=== PATIENT | female | born 1935 | race Two or more races ===

== ENCOUNTER 2024-05-09 07:01 | Inpatient (IN) | payer OTHER ==
[~2024-05-09] VITALS: Ht 147.3 cm; Wt 111.6 kg
[2024-05-09] MEDS ORDERED: NEURONTIN300 MG (07:20)
[2024-05-09] MEDS ORDERED: GLIPIZIDE XL2.5 MG PO (07:20)
[2024-05-09] MEDS ORDERED: LOTREL 10-20 M1 EACH (07:20)
[2024-05-09] MEDS ORDERED: ARICEPT10 MG PO (07:20)
[2024-05-09] MEDS ORDERED: FOLIC ACID0.8 M1 (07:21)
[2024-05-09] MEDS ORDERED: NAMENDA XR7 MG (07:21)
[2024-05-09] MEDS ORDERED: SIMVASTATIN40 MG (07:21)
[2024-05-09] MEDS ORDERED: DETROL LA4 MG PO (07:22)
[2024-05-09] MEDS ORDERED: CARAFATE1 GM (07:22)
[2024-05-09] MEDS ORDERED: KRISTALOSE10 GM PO (07:22)
--- NOTE | 2024-05-09 07:22 | NUR ---
SE RECIBE PTE ALERTA Y ORIENTADA EN PERSONA EN AMBULANCIA EN COMPANIA DE FAMILIAR Y PARAMEDICOS. HIJA REFIERE QUE PTE SE ALUREN EL Y LE DIAGNOSTICARON FRACTURA EN LA CADERA DERECHA EN EL [facility]. PTE REFIERE QUE EN RECIEN LABORATOTORIO HEMOGLOBINA EN 7.6. SE OBSEVA NI DE HOGAR. SE MIDEN S/V Y SE UBICA.
[2024-05-09] MEDS ORDERED: 0.9 % SODIUM CHLORIDE 1,000 ML IV STA (07:29)
[2024-05-09 08:43] LABS: ABG PH 7.449 (7.35-7.45); ABG PO2 70.2 mmHg (80-100); ABG pCO2 38.5 mmHg (35-45); BASE EXCESS 2.1 mmol/l; BICARBONATE 26.1 mmol/l (23-25); SaO2 94.8 %; Tco2 27.3 mmol/l; o2 21 %; puncture site RADIAL LEFT
[2024-05-09 08:44] LABS: allen test SATISFACTORY
--- NOTE | 2024-05-09 08:44 | NUR ---
SE LE ORIENTA A PACIENTE SOBRE LA ORDEN MEDICA, REFIERE ENTENDER LAS MISMAS. SE CANALIZA Y SE LE COLOCA EL IVF'S, SE LE TG LAS MUETRAS, SE LE RAEALIZA EKG, PLACA, CT, DXT Y EKG ALFA LA ORDEN MEDICA.
[2024-05-09 08:48] LABS: MEAN CELL VOLUME 89.4 fL (80.00-100.00); MEAN CORPUSCULAR HGB CONC 31.9 g/dl (32.0-36.0); RED BLOOD COUNT 2.91 M/uL (4.00-6.00); RED CELL DISTRIBUTION WIDTH 18.3 % (11.5-14.5)
[2024-05-09 08:56] LABS: INR 1.04; PARTIAL THROMBOPLASTIN TIME 25.4 SECONDS (22.0-34.0); PROTHROMBIN TIME 11.3 SECONDS (9.0-11.5)
[2024-05-09 09:01] LABS: URINE APPEARANCE Turbid; URINE BILIRRUBIN Negative (NEGATIVE); URINE BLOOD Large; URINE COLOR Orange; URINE GLUCOSE Negative (NEGATIVE); URINE KETONE Negative (NEGATIVE); URINE LEUKOCYTE Moderate; URINE NITRATE Negative
[2024-05-09 09:03] LABS: URINE CAST 1.87 uL (0.0-1.40); URINE EPITHELIAL CELLS 35.4 uL (0.0-38.8); URINE WBC 1003.9 uL (0.0-23.2)
[2024-05-09 09:07] LABS: ALBUMIN 2.8 gm/dL (3.4-5.0); BILIRUBIN TOTAL 0.28 mg/dL (0.3-1.2); CALCIUM 8.9 mg/dL (8.5-10.1); CREATININE SERUM 0.79 mg/dL (0.55-1.02); GFR 68.68; GLOBULINA 4.1 G/DL (2.4-3.5); POTASSIUM 4.16 mEq/L (3.5-5.1); TOTAL PROTEIN 6.9 gm/dL (6.4-8.2)
[2024-05-09] MEDS ORDERED: ORPHENADRINE CITRATE 30 MG/ML AMPUL IV ONE (09:45)
[2024-05-09 09:50] LABS: HEMOGLOBIN 8.3 g/dL (12.0-15.00); MEAN CORPUSCULAR HEMOGLOBIN 28.5 pg (27.00-32.0); PLATELET COUNT 113 K/uL (150-450)
[2024-05-09 09:52] LABS: URINE BACTERIA > 9821.5 uL (0.0-1933); URINE PROTEIN 300 (NEGATIVE); URINE RBC > 10558.9 uL (0.0-20.8)
[2024-05-09] MEDS ORDERED: PIPERACILLIN/TAZOBACTAM SODIUM 3.375 GM VIAL IV SCH (12:00)
[2024-05-09] MEDS ORDERED: KETOROLAC TROMETHAMINE 30 MG VIAL IV ONE (17:45)
[2024-05-09 17:53] LABS: ob POSITIVE (NEGATIVE)
[2024-05-09] MEDS ORDERED: DONEPEZIL HCL 10 MG TABLET PO SCH (20:28)
[2024-05-09] MEDS ORDERED: MEMANTINE HCL 10 MG TABLET PO SCH (20:29)
[2024-05-09] MEDS ORDERED: MORPHINE SULFATE 4 MG/ML CARTRIDGE IV ONE (20:30)
[2024-05-09] MEDS ORDERED: ACETAMINOPHEN 500 MG GEL..CAP PO PRN (20:30)
[2024-05-09] MEDS ORDERED: MORPHINE SULFATE 4 MG/ML CARTRIDGE IV PRN (20:30)
[2024-05-09] MEDS ORDERED: FUROsemide 20 MG/2 ML VIAL IV SCH (20:45)
[2024-05-10 05:00] VITALS: BP 119/53; O2SAT 100
[2024-05-10 08:00] VITALS: BP 94/55; O2SAT 97
[2024-05-10 08:54] LABS: COL EPI 58 SECONDS (82-175)
[2024-05-10] MEDS ORDERED: PANTOPRAZOLE SODIUM 40 MG/VIAL VIAL IV SCH (09:00)
[2024-05-10] MEDS ORDERED: AMLODIPINE BESYLATE 5 MG TABLET PO SCH (09:00)
[2024-05-10] MEDS ORDERED: 0.9 % SODIUM CHLORIDE 1,000 ML IV SCH (11:00)
[2024-05-10 16:00] VITALS: BP 92/45; O2SAT 97
[2024-05-10] MEDS ORDERED: SIMVASTATIN 40 MG TABLET PO SCH (17:00)
[2024-05-10] MEDS ORDERED: GABAPENTIN 400 MG CAPSULE PO SCH (17:00)
[2024-05-11 01:04] VITALS: BP 114/53; O2SAT 100
[2024-05-11 08:00] VITALS: BP 110/60; BP 111/70; O2SAT 95; O2SAT 97
[2024-05-11 08:49] LABS: PH,URINE 5.5 (5.0-8.0); URINE APPEARANCE Cloudy; URINE BILIRRUBIN Negative (NEGATIVE); URINE BLOOD Trace; URINE COLOR Yellow; URINE GLUCOSE Negative (NEGATIVE); URINE KETONE Negative (NEGATIVE); URINE LEUKOCYTE Trace; URINE NITRATE Negative; URINE PROTEIN 30 (NEGATIVE); URINE UROBILINOGEN 0.2 E.U./dl
[2024-05-11 08:51] LABS: URINE EPITHELIAL CELLS 18.3 uL (0.0-38.8); URINE RBC 86.9 uL (0.0-20.8); URINE WBC 95.2 uL (0.0-23.2)
[2024-05-11 09:02] LABS: URINE CRYSTALS MANY /HPF; URINE EPITHELIAL CELLS 0-4 /HPF
[2024-05-11] MEDS ORDERED: LACTULOSE 20 G/30 ML BLIST.PACK PO SCH (10:55)
[2024-05-11] MEDS ORDERED: FERROUS SULFATE 325 MG TABLET.EC PO SCH (10:56)
[2024-05-11] MEDS ORDERED: POLYETHYLENE GLYCOL 3350 17 GM BLIST.PACK PO SCH (10:56)
[2024-05-11 13:18] LABS: HEMATOCRIT 31.1 % (36.0-45.00); HEMOGLOBIN 9.7 g/dL (12.0-15.00); MEAN CELL VOLUME 88.8 fL (80.00-100.00); MEAN CORPUSCULAR HEMOGLOBIN 27.8 pg (27.00-32.0); MEAN CORPUSCULAR HGB CONC 31.3 g/dl (32.0-36.0); RED BLOOD COUNT 3.51 M/uL (4.00-6.00); RED CELL DISTRIBUTION WIDTH 18.9 % (11.5-14.5)
[2024-05-11] MEDS ORDERED: VANCOMYCIN HCL 1,000 MG VIAL IV NR (13:30)
[2024-05-11 13:51] LABS: PLATELET COUNT 91 K/uL (150-450)
[2024-05-11] MEDS ORDERED: AMPICILLIN SODIUM/SULBACTAM NA 3,000 MG in 0.9 % SODIUM CHLORIDE 100 ML IV SCH (17:00)
[2024-05-11 17:08] VITALS: BP 130/58; O2SAT 95
[2024-05-12] VITALS: BP 113/57; O2SAT 99
[2024-05-12 08:00] VITALS: BP 160/72; O2SAT 95
[2024-05-12] MEDS ORDERED: FUROsemide 20 MG/2 ML VIAL IV SCH (12:15)
[2024-05-12 17:06] VITALS: BP 154/66; O2SAT 97
[2024-05-13 01:00] VITALS: BP 140/63; O2SAT 100
[2024-05-13 08:00] VITALS: BP 152/78; O2SAT 100
[2024-05-13 14:32] LABS: PH,URINE 6.5 (5.0-8.0); URINE APPEARANCE Clear; URINE BILIRRUBIN Negative (NEGATIVE); URINE BLOOD Negative; URINE COLOR Yellow; URINE EPITHELIAL CELLS 19.1 uL (0.0-38.8); URINE GLUCOSE Negative (NEGATIVE); URINE KETONE Negative (NEGATIVE); URINE LEUKOCYTE Negative; URINE NITRATE Negative; URINE RBC 6.1 uL (0.0-20.8); URINE WBC 23.5 uL (0.0-23.2)
[2024-05-13 14:33] LABS: URINE CAST 0.29 uL (0.0-1.40); URINE PROTEIN 100 (NEGATIVE)
[2024-05-13 20:10] VITALS: BP 117/63; O2SAT 95
[2024-05-14 00:41] VITALS: BP 106/49; O2SAT 98
[2024-05-14 08:00] VITALS: BP 127/66; O2SAT 95
[2024-05-14] MEDS ORDERED: AMLODIPINE BESYLATE 10 MG TABLET PO SCH (09:00)
[2024-05-14 15:19] LABS: HEMATOCRIT 39.8 % (36.0-45.00); HEMOGLOBIN 13.1 g/dL (12.0-15.00); MEAN CELL VOLUME 82.9 fL (80.00-100.00); MEAN CORPUSCULAR HEMOGLOBIN 27.3 pg (27.00-32.0); MEAN CORPUSCULAR HGB CONC 32.9 g/dl (32.0-36.0); RED CELL DISTRIBUTION WIDTH 18.8 % (11.5-14.5)
[2024-05-14 15:39] LABS: CALCIUM 8.3 mg/dL (8.5-10.1); CREATININE SERUM 0.78 mg/dL (0.55-1.02); GFR 69.7; POTASSIUM 3.4 mEq/L (3.5-5.1)
[2024-05-14 16:00] VITALS: BP 139/61; O2SAT 95
[2024-05-14 16:07] LABS: PLATELET COUNT 67 K/uL (150-450)
[2024-05-14 16:15] LABS: MANUAL PLATELET COUNT 142
[2024-05-15 00:30] VITALS: BP 118/69; O2SAT 97
[2024-05-15 07:28] LABS: HEMATOCRIT 37.9 % (36.0-45.00); HEMOGLOBIN 12.7 g/dL (12.0-15.00); MEAN CORPUSCULAR HEMOGLOBIN 27.5 pg (27.00-32.0); MEAN CORPUSCULAR HGB CONC 33.5 g/dl (32.0-36.0); RED BLOOD COUNT 4.62 M/uL (4.00-6.00); RED CELL DISTRIBUTION WIDTH 18.9 % (11.5-14.5)
[2024-05-15 08:00] VITALS: BP 138/64; O2SAT 96
[2024-05-15] MEDS ORDERED: CEFTRIAXONE SODIUM 2,000 MG VIAL IV SCH (08:00)
[2024-05-15 08:05] LABS: CALCIUM 8.2 mg/dL (8.5-10.1); CREATININE SERUM 0.6 mg/dL (0.55-1.02); GFR 94.34; POTASSIUM 3.03 mEq/L (3.5-5.1)
[2024-05-15 08:39] LABS: PLATELET COUNT 66 K/uL (150-450)
[2024-05-15] MEDS ORDERED: VANCOMYCIN HCL 1,000 MG VIAL IR ONE (09:45)
[2024-05-15] MEDS ORDERED: CEFTRIAXONE SODIUM 2,000 MG VIAL IV ONE (09:45)
[2024-05-15] MEDS ORDERED: TRANEXAMIC ACID 100MG/1ML (1000MG) AMPUL IV ONE ×2 (09:45)
[2024-05-15] MEDS ORDERED: SUGAMMADEX SODIUM 200 MG/2 ML VIAL IV ONE (10:30)
[2024-05-15] MEDS ORDERED: ONDANSETRON HCL 2 MG/ML VIAL IV PRN (10:45)
[2024-05-15] MEDS ORDERED: ONDANSETRON 4 MG TAB.RAPDIS PO PRN (10:45)
[2024-05-15] MEDS ORDERED: SODIUM CHLORIDE 0.45 % 1,000 ML IV SCH (10:45)
[2024-05-15] MEDS ORDERED: POTASSIUM CHLORIDE 10 MEQ CAPSULE PO SCH (13:00)
[2024-05-15] MEDS ORDERED: PROMETHAZINE HCL 25 MG/ML AMPUL IM PRN (14:45)
[2024-05-15] MEDS ORDERED: MEPERIDINE HCL/PF 25 MG/ML VIAL IM PRN (14:45)
[2024-05-15 16:00] VITALS: BP 131/61
[2024-05-16 00:10] VITALS: BP 111/56; O2SAT 91
[2024-05-16 06:51] LABS: HEMATOCRIT 36.3 % (36.0-45.00); MEAN CELL VOLUME 83.1 fL (80.00-100.00); MEAN CORPUSCULAR HEMOGLOBIN 27.4 pg (27.00-32.0); RED BLOOD COUNT 4.36 M/uL (4.00-6.00); RED CELL DISTRIBUTION WIDTH 18.8 % (11.5-14.5)
[2024-05-16 07:28] LABS: PLATELET COUNT 61 K/uL (150-450)
[2024-05-16 08:00] VITALS: BP 140/60; O2SAT 94
[2024-05-16] MEDS ORDERED: RIVAROXABAN 10 MG TAB PO SCH (09:00)
[2024-05-16] MEDS ORDERED: PANTOPRAZOLE SODIUM 40 MG TABLET.DR PO SCH (09:00)
[2024-05-16 18:16] VITALS: BP 102/63; O2SAT 94
[2024-05-17] VITALS: BP 115/60; O2SAT 98
[2024-05-17 07:55] LABS: HEMATOCRIT 37.4 % (36.0-45.00); HEMOGLOBIN 11.7 g/dL (12.0-15.00); MEAN CELL VOLUME 85.6 fL (80.00-100.00); MEAN CORPUSCULAR HEMOGLOBIN 26.7 pg (27.00-32.0); MEAN CORPUSCULAR HGB CONC 31.2 g/dl (32.0-36.0); RED BLOOD COUNT 4.37 M/uL (4.00-6.00); RED CELL DISTRIBUTION WIDTH 19.3 % (11.5-14.5)
[2024-05-17 08:38] LABS: ALBUMIN 2.2 gm/dL (3.4-5.0); BILIRUBIN TOTAL 0.78 mg/dL (0.3-1.2); CALCIUM 8.4 mg/dL (8.5-10.1); CREATININE SERUM 0.85 mg/dL (0.55-1.02); GFR 63.12; GLOBULINA 3.5 G/DL (2.4-3.5); MAGNESIUM 1.9 mg/dL (1.8-2.4); PHOSPHOROUS 2.1 mg/dL (2.5-4.9); POTASSIUM 3.74 mEq/L (3.5-5.1); TOTAL PROTEIN 5.7 gm/dL (6.4-8.2)
[2024-05-17 08:40] LABS: PLATELET COUNT 47 K/uL (150-450)
[2024-05-17] MEDS ORDERED: SENNA/DOCUSATE SODIUM 1 TAB TABLET PO SCH (09:00)
[2024-05-17] MEDS ORDERED: CEFTRIAXONE SODIUM 2,000 MG in 0.9 % SODIUM CHLORIDE 100 ML IV SCH (09:00)
[2024-05-17 09:50] VITALS: BP 152/68; O2SAT 100
[2024-05-17] MEDS ORDERED: FLUCONAZOLE IN NACL,ISO-OSM 200 MG/100 ML PIGGYBAG IV NR (14:00)
[2024-05-17 16:00] VITALS: BP 106/58; O2SAT 95
[2024-05-17] MEDS ORDERED: IRON FUM,PS/FOLIC ACID/VITC/B3 1 CAP CAPSULE PO SCH (17:00)
[2024-05-17] MEDS ORDERED: VITAMIN B COMPLEX 1 EACH PO SCH (17:00)
[2024-05-17] MEDS ORDERED: Cyanocobalamin/Mecobalamin 1 TAB.SL SL SCH (17:00)
[2024-05-17] MEDS ORDERED: SILVER SULFADIAZINE 50 GM,NYSTATIN 30 GM,ZINC OXIDE 30 GM TOP SCH (17:00)
[2024-05-17] MEDS ORDERED: SOD FERRIC GLUC COMPLX/SUCROSE 62.5 MG/5 ML AMPUL IV SCH (17:00)
[2024-05-18 00:12] VITALS: BP 127/58; O2SAT 94
[2024-05-18] MEDS ORDERED: MEPERIDINE HCL/PF 25 MG/ML VIAL IM PRN (03:30)
[2024-05-18] MEDS ORDERED: PROMETHAZINE HCL 25 MG/ML AMPUL IM PRN (03:30)
[2024-05-18 07:50] LABS: HEMATOCRIT 33.4 % (36.0-45.00); HEMOGLOBIN 10.8 g/dL (12.0-15.00); MEAN CELL VOLUME 84.4 fL (80.00-100.00); MEAN CORPUSCULAR HEMOGLOBIN 27.3 pg (27.00-32.0); MEAN CORPUSCULAR HGB CONC 32.4 g/dl (32.0-36.0); RED BLOOD COUNT 3.95 M/uL (4.00-6.00); RED CELL DISTRIBUTION WIDTH 18.4 % (11.5-14.5)
[2024-05-18 08:00] VITALS: BP 123/48; O2SAT 93
[2024-05-18] MEDS ORDERED: DEXTROSE 50 % IN WATER 0.5 G/ML DISP.SYRIN IV PRN (08:00)
[2024-05-18 08:41] LABS: PLATELET COUNT 42 K/uL (150-450)
[2024-05-18 08:56] LABS: CALCIUM 8.3 mg/dL (8.5-10.1); CREATININE SERUM 0.61 mg/dL (0.55-1.02); GFR 92.56; POTASSIUM 3.42 mEq/L (3.5-5.1)
[2024-05-18 16:00] VITALS: BP 120/60; O2SAT 97
[2024-05-18] MEDS ORDERED: FLUCONAZOLE IN NACL,ISO-OSM 2 MG/ML ML IV SCH (17:00)
[2024-05-18] MEDS ORDERED: CLOTRIMAZOLE 10 MG TROCHE MM SCH (17:00)
[2024-05-18] MEDS ORDERED: INSULIN GLARGINE,HUM.REC.ANLOG 1,000 UNITS/10 ML UNITS SUBCUTANEO SCH (21:00)
[2024-05-19 01:26] VITALS: BP 137/60; O2SAT 96
[2024-05-19 06:41] LABS: HEMATOCRIT 35.2 % (36.0-45.00); HEMOGLOBIN 11.6 g/dL (12.0-15.00); MEAN CELL VOLUME 83.9 fL (80.00-100.00); MEAN CORPUSCULAR HEMOGLOBIN 27.7 pg (27.00-32.0); MEAN CORPUSCULAR HGB CONC 33.1 g/dl (32.0-36.0); RED CELL DISTRIBUTION WIDTH 19.3 % (11.5-14.5)
[2024-05-19 07:35] LABS: PLATELET COUNT 58 K/uL (150-450)
[2024-05-19 08:00] VITALS: BP 143/72; O2SAT 96
[2024-05-19 14:55] LABS: ALBUMIN 1.9 gm/dL (3.4-5.0); BILIRUBIN TOTAL 0.44 mg/dL (0.3-1.2); CALCIUM 8.1 mg/dL (8.5-10.1); CREATININE SERUM 0.64 mg/dL (0.55-1.02); GFR 87.57; GLOBULINA 4.2 G/DL (2.4-3.5); MAGNESIUM 1.9 mg/dL (1.8-2.4); PHOSPHOROUS 2.1 mg/dL (2.5-4.9); POTASSIUM 3.14 mEq/L (3.5-5.1); TOTAL PROTEIN 6.1 gm/dL (6.4-8.2)
[2024-05-19 14:58] LABS: C-REACTIVE PROTEIN 11.6 MG/DL (0.00-0.29)
[2024-05-19 16:00] VITALS: BP 118/56; O2SAT 96
[2024-05-20 02:02] VITALS: BP 121/60; O2SAT 96
[2024-05-20 08:00] VITALS: BP 134/62; O2SAT 97
[2024-05-20 08:53] LABS: CALCIUM 7.8 mg/dL (8.5-10.1); CREATININE SERUM 0.51 mg/dL (0.55-1.02); GFR 113.81; POTASSIUM 3.45 mEq/L (3.5-5.1)
[2024-05-20 15:53] VITALS: BP 125/60; O2SAT 92
[2024-05-20] MEDS ORDERED: PROMETHAZINE HCL 25 MG/ML AMPUL IM PRN (23:15)
[2024-05-20] MEDS ORDERED: MEPERIDINE HCL/PF 25 MG/ML VIAL IM PRN (23:15)
[2024-05-21 01:24] VITALS: BP 123/71; O2SAT 95
[2024-05-21 08:00] VITALS: BP 94/50; O2SAT 95
[2024-05-21] MEDS ORDERED: LABETALOL HCL 100 MG TABLET PO PRN (11:45)
[2024-05-21 16:30] VITALS: BP 115/67; O2SAT 95
[2024-05-22 02:04] VITALS: BP 138/83; O2SAT 96
[2024-05-22 08:00] VITALS: BP 133/71; O2SAT 94
[2024-05-22 08:56] LABS: RED BLOOD COUNT 4.05 M/uL (4.00-6.00)
[2024-05-22 11:34] LABS: CREATININE SERUM 0.49 mg/dL (0.55-1.02); GFR 119.18; POTASSIUM 4.08 mEq/L (3.5-5.1)
[2024-05-22 16:00] VITALS: BP 140/62; O2SAT 97
== END 2024-05-22 22:09 | DRG 521 ==
LOC: EDBD 07:01 → ER 07:01 → SURH 22:13
PROVIDERS: General Practice; Internal Medicine; Internal Medicine Infectious Disease; Orthopaedic Surgery; ADMIT Student in an Organized Health Care Education/Training Program; ATTEND Student in an Organized Health Care Education/Training Program
PROC: BW28ZZZ Computerized Tomography (CT Scan) of Head (ICD-10-PCS; 2024-05-09)
PROC: BR20ZZZ Computerized Tomography (CT Scan) of Cervical Spine (ICD-10-PCS; 2024-05-09)
PROC: BR2CZZZ Computerized Tomography (CT Scan) of Pelvis (ICD-10-PCS; 2024-05-09)
PROC: 30233N1 Transfusion of Nonautologous Red Blood Cells into Peripheral Vein, Percutaneous Approach (ICD-10-PCS; 2024-05-10)
PROC: B24BZZZ Ultrasonography of Heart with Aorta (ICD-10-PCS; 2024-05-10)
PROC: 02HV33Z Insertion of Infusion Device into Superior Vena Cava, Percutaneous Approach (ICD-10-PCS; 2024-05-12)
PROC: 0MBL0ZZ Excision of Right Hip Bursa and Ligament, Open Approach (ICD-10-PCS; 2024-05-15)
PROC: 0SRR0JZ Replacement of Right Hip Joint, Femoral Surface with Synthetic Substitute, Open Approach (ICD-10-PCS; principal; 2024-05-15 12:15)
DX: S72.031A Displaced midcervical fracture of right femur, initial encounter for closed fracture (principal); K76.7 Hepatorenal syndrome; N39.0 Urinary tract infection, site not specified; D62 Acute posthemorrhagic anemia; I50.30 Unspecified diastolic (congestive) heart failure; C64.9 Malignant neoplasm of unspecified kidney, except renal pelvis; E78.5 Hyperlipidemia, unspecified; W13.3XXA Fall through floor, initial encounter; Y93.9 Activity, unspecified; Y92.009 Unspecified place in unspecified non-institutional (private) residence as the place of occurrence of the external cause; I35.0 Nonrheumatic aortic (valve) stenosis; I25.10 Atherosclerotic heart disease of native coronary artery without angina pectoris; I11.0 Hypertensive heart disease with heart failure; G30.9 Alzheimer's disease, unspecified; F02.80 Dementia in other diseases classified elsewhere, unspecified severity, without behavioral disturbance, psychotic disturbance, mood disturbance, and anxiety; D69.6 Thrombocytopenia, unspecified; K31.819 Angiodysplasia of stomach and duodenum without bleeding

== ENCOUNTER 2024-08-24 12:40 | Outpatient (CLI) | payer OTHER ==
[~2024-08-24 12:40] MED LIST: ARICEPT10 MG PO; CARAFATE1 GM; DETROL LA4 MG PO; FOLIC ACID0.8 M1; GLIPIZIDE XL2.5 MG PO; KRISTALOSE10 GM PO; LOTREL 10-20 M1 EACH; NAMENDA XR7 MG; NEURONTIN300 MG; SIMVASTATIN40 MG
== END 2024-08-24 12:46 | disposition home or self-care (01) ==
LOC: RAD 12:40
PROVIDERS: ATTEND Orthopaedic Surgery
DX: Z96.641 Presence of right artificial hip joint (principal)

== ENCOUNTER 2024-10-24 15:30 | Inpatient (IN) | payer OTHER ==
[~2024-10-24] VITALS: Ht 157.5 cm; Wt 45.4 kg
[2024-10-24] MEDS ORDERED: 0.9 % SODIUM CHLORIDE 1,000 ML IV SCH ×2 (16:45→20:15)
[2024-10-24 17:53] LABS: CALCIUM 8.7 mg/dL (8.5-10.1); CREATININE SERUM 0.61 mg/dL (0.55-1.02); GFR 92.35; POTASSIUM 4.38 mEq/L (3.5-5.1)
[2024-10-24 18:23] LABS: RED BLOOD COUNT 2.08 M/uL (3.93-5.22)
[2024-10-24 18:25] LABS: MEAN CORPUSCULAR HEMOGLOBIN 25.5 pg (25.6-32.2); RED CELL DISTRIBUTION WIDTH 16.8 % (11.6-14.4)
[2024-10-24 18:26] LABS: BASO % 0.3 % (0.1-1.2); EOS # 0.03 (0.04-0.54); EOS % 0.5 % (0.7-7.0); LYMPH # 1.86 (1.18-3.74); MONO # 1.67 (0.24-0.82); NEUT # 2.62 (1.56-6.13); NEUT % 42.1 % (34.0-71.1); PLATELET COUNT 138 K/uL (163-369)
[2024-10-24 18:27] LABS: MONO % 26.9 % (4.7-12.5)
[2024-10-24 18:40] LABS: HEMATOCRIT 17.5 % (34.1-44.9); HEMOGLOBIN 5.3 g/dL (11.2-15.7)
[2024-10-24] MEDS ORDERED: FUROsemide 20 MG/2 ML VIAL IV SCH (20:15)
[2024-10-24] MEDS ORDERED: PANTOPRAZOLE SODIUM 40 MG/VIAL VIAL IV SCH (20:19)
[2024-10-24] MEDS ORDERED: DONEPEZIL HCL 10 MG TABLET PO SCH (20:19)
[2024-10-24] MEDS ORDERED: ACETAMINOPHEN 500 MG GEL..CAP PO PRN (20:30)
[2024-10-24] MEDS ORDERED: OCTREOTIDE ACETATE 0.05MG/ML (50MCG/ML) AMPUL IV ONE (20:30)
[2024-10-24 23:00] VITALS: BP 137/40; O2SAT 98
[2024-10-24 23:08] VITALS: BP 152/72
[2024-10-24 23:49] LABS: INR 1.03; PARTIAL THROMBOPLASTIN TIME 24.5 SECONDS (22.0-34.0); PROTHROMBIN TIME 11.2 SECONDS (9.0-11.5)
[2024-10-25] VITALS (13 sets, daily range): BP systolic 114–169; BP diastolic 40–58; O2SAT 93–100
[2024-10-25 00:56] LABS: PH,URINE 7.5 (5.0-8.0); URINE APPEARANCE Turbid; URINE BILIRRUBIN Negative (NEGATIVE); URINE BLOOD Negative; URINE COLOR Yellow; URINE GLUCOSE Negative (NEGATIVE); URINE KETONE Negative (NEGATIVE); URINE LEUKOCYTE Small; URINE NITRATE Positive; URINE PROTEIN 30 (NEGATIVE); URINE UROBILINOGEN 0.2 E.U./dl
[2024-10-25 01:01] LABS: URINE CAST 2.79 uL (0.0-1.40); URINE RBC 6.9 uL (0.0-20.8)
[2024-10-25 01:35] LABS: URINE BACTERIA > 9821.5 uL (0.0-1933); URINE EPITHELIAL CELLS > 201.7 uL (0.0-38.8)
[2024-10-25 01:36] LABS: URINE CRYSTALS MANY /HPF
[2024-10-25] MEDS ORDERED: IRON FUM,PS/FOLIC/BCOMP,C NO.9 1 CAP CAPSULE PO SCH (09:00)
[2024-10-25] MEDS ORDERED: MEMANTINE HCL 10 MG TABLET PO SCH (09:00)
[2024-10-25] MEDS ORDERED: SIMVASTATIN 40 MG TABLET PO SCH (17:00)
[2024-10-25] MEDS ORDERED: SUCRALFATE 1 G TABLET PO SCH (17:00)
[2024-10-26 04:56] LABS: BASO % 0.7 % (0.1-1.2); EOS # 0.02 (0.04-0.54); EOS % 0.3 % (0.7-7.0); HEMATOCRIT 42.4 % (34.1-44.9); HEMOGLOBIN 14.3 g/dL (11.2-15.7); LYMPH # 1.22 (1.18-3.74); LYMPH % 16.8 % (19.3-53.1); MEAN CORPUSCULAR HEMOGLOBIN 28.6 pg (25.6-32.2); MONO # 2.22 (0.24-0.82); NEUT # 3.71 (1.56-6.13); RED CELL DISTRIBUTION WIDTH 14.5 % (11.6-14.4)
[2024-10-26 04:58] LABS: D DIMER 1.82 MG/L; INR 1.03; PARTIAL THROMBOPLASTIN TIME 25.6 SECONDS (22.0-34.0); PROTHROMBIN TIME 11.2 SECONDS (9.0-11.5)
[2024-10-26 05:01] LABS: MONO % 30.6 % (4.7-12.5)
[2024-10-26 05:02] LABS: PLATELET COUNT 85 K/uL (163-369)
[2024-10-26 07:57] LABS: COVID-19 AG NEGATIVE (NEGATIVE)
[2024-10-26 08:23] VITALS: BP 123/58; O2SAT 100
[2024-10-26 13:36] LABS: BASO % 0.3 % (0.1-1.2); EOS # 0.01 (0.04-0.54); EOS % 0.1 % (0.7-7.0); HEMATOCRIT 43.6 % (34.1-44.9); HEMOGLOBIN 14.4 g/dL (11.2-15.7); LYMPH # 1.06 (1.18-3.74); LYMPH % 11.2 % (19.3-53.1); MEAN CORPUSCULAR HEMOGLOBIN 27.9 pg (25.6-32.2); MONO # 2.67 (0.24-0.82); NEUT # 5.67 (1.56-6.13); NEUT % 59.7 % (34.0-71.1); RED BLOOD COUNT 5.17 M/uL (3.93-5.22); RED CELL DISTRIBUTION WIDTH 14.6 % (11.6-14.4)
[2024-10-26 13:43] VITALS: O2SAT 97
[2024-10-26] MEDS ORDERED: POLYETHYLENE GLYCOL 3350 17 GM BLIST.PACK PO SCH (14:14)
[2024-10-26 15:00] LABS: PLATELET COUNT 80 K/uL (163-369)
[2024-10-26 15:04] LABS: MONO % 28.1 % (4.7-12.5)
[2024-10-26 16:32] VITALS: BP 144/54; O2SAT 90
[2024-10-26 16:56] VITALS: O2SAT 94
[2024-10-26 20:20] VITALS: O2SAT 97
[2024-10-27] VITALS (10 sets, daily range): BP systolic 119–170; BP diastolic 42–72; O2SAT 90–98
[2024-10-27] MEDS ORDERED: MIDAZOLAM HCL 2 MG/2 ML VIAL IV STA (12:09)
[2024-10-27] MEDS ORDERED: LACTULOSE 20 G/30 ML BLIST.PACK PO STA (12:35)
[2024-10-27 15:40] LABS: ob POSITIVE (NEGATIVE)
[2024-10-28] VITALS (9 sets, daily range): BP systolic 130–149; BP diastolic 55–74; O2SAT 94–99
[2024-10-28 08:51] LABS: BASO % 0.3 % (0.1-1.2); EOS # 0.03 (0.04-0.54); EOS % 0.4 % (0.7-7.0); HEMOGLOBIN 13.5 g/dL (11.2-15.7); LYMPH # 0.94 (1.18-3.74); LYMPH % 13.6 % (19.3-53.1); MEAN CORPUSCULAR HEMOGLOBIN 27.7 pg (25.6-32.2); MONO # 2.08 (0.24-0.82); NEUT % 54.8 % (34.0-71.1); RED BLOOD COUNT 4.87 M/uL (3.93-5.22); RED CELL DISTRIBUTION WIDTH 15.3 % (11.6-14.4)
[2024-10-28 08:57] LABS: PLATELET COUNT 74 K/uL (163-369)
[2024-10-28] MEDS ORDERED: PANTOPRAZOLE SODIUM 40 MG TABLET.DR PO SCH (09:00)
[2024-10-28] MEDS ORDERED: LACTULOSE 20 G/30 ML BLIST.PACK PO SCH (09:00)
[2024-10-28] MEDS ORDERED: levoFLOXacin IN DEXTROSE 5 % 100 ML IV NR (13:00)
[2024-10-28] MEDS ORDERED: ZINC OXIDE 30 GM,NYSTATIN 30 GM TOP SCH (13:00)
[2024-10-28] MEDS ORDERED: HYDROCORTISONE 1% 29 G TUBE TOP SCH (13:00)
[2024-10-28 13:31] LABS: PH,URINE 6.5 (5.0-8.0); URINE APPEARANCE Clear; URINE BILIRRUBIN Negative (NEGATIVE); URINE BLOOD Small; URINE COLOR Yellow; URINE GLUCOSE Negative (NEGATIVE); URINE KETONE Negative (NEGATIVE); URINE LEUKOCYTE Small; URINE NITRATE Positive
[2024-10-28 13:34] LABS: URINE EPITHELIAL CELLS 4.9 uL (0.0-38.8); URINE RBC 21.5 uL (0.0-20.8); URINE WBC 488.4 uL (0.0-23.2)
[2024-10-28 14:24] LABS: URINE BACTERIA > 9821.5 uL (0.0-1933); URINE CAST 0.29 uL (0.0-1.40); URINE PROTEIN 300 (NEGATIVE)
[2024-10-29] VITALS (9 sets, daily range): BP systolic 161–171; BP diastolic 64–72; O2SAT 94–99
[2024-10-29] MEDS ORDERED: CLONAZEPAM 0.5 MG TABLET PO ONE (01:45)
[2024-10-29] MEDS ORDERED: levoFLOXacin IN DEXTROSE 5 % 100 ML IV SCH (09:00)
[2024-10-29] MEDS ORDERED: FUROsemide 20 MG/2 ML VIAL IV STA (09:25)
[2024-10-29] MEDS ORDERED: INSULIN LISPRO 1,000 UNIT/10 ML UNITS SUBCUTANEO PRN (11:15)
[2024-10-29] MEDS ORDERED: DEXTROSE 50 % IN WATER 0.5 G/ML VIAL IV PRN (11:15)
[2024-10-29] MEDS ORDERED: ENALAPRILAT DIHYDRATE 1.25 MG/ML VIAL IV PRN (11:15)
[2024-10-29 11:32] LABS: ABG PH 7.426 (7.35-7.45); ABG PO2 91.8 mmHg (80-100); ABG pCO2 34.8 mmHg (35-45); BASE EXCESS -1.3 mmol/l; BICARBONATE 22.4 mmol/l (23-25); SaO2 97.3 %; Tco2 23.4 mmol/l
[2024-10-29 11:40] LABS: allen test SATISFACTORY; mode NASAL CANNULA; o2 28 %; puncture site RADIAL LEFT
[2024-10-29] MEDS ORDERED: LISINOPRIL 10 MG TABLET PO NR (12:00)
[2024-10-29] MEDS ORDERED: EMOLLIENT COMBINATION NO.92 2.5 OZ BOTTLE TOP SCH (13:00)
[2024-10-29] MEDS ORDERED: FUROsemide 20 MG/2 ML VIAL IV SCH (13:00)
[2024-10-29] MEDS ORDERED: GABAPENTIN 400 MG CAPSULE PO SCH (21:00)
[2024-10-30] VITALS (9 sets, daily range): BP systolic 116–173; BP diastolic 55–78; O2SAT 95–99
[2024-10-30 07:52] LABS: BASO % 0.7 % (0.1-1.2); EOS # 0.03 (0.04-0.54); EOS % 0.5 % (0.7-7.0); HEMATOCRIT 44.2 % (34.1-44.9); HEMOGLOBIN 14.4 g/dL (11.2-15.7); LYMPH # 1.32 (1.18-3.74); LYMPH % 23.2 % (19.3-53.1); MEAN CORPUSCULAR HEMOGLOBIN 28.3 pg (25.6-32.2); MONO # 1.43 (0.24-0.82); NEUT # 2.84 (1.56-6.13); RED BLOOD COUNT 5.08 M/uL (3.93-5.22); RED CELL DISTRIBUTION WIDTH 15.5 % (11.6-14.4)
[2024-10-30 08:18] LABS: MONO % 25.2 % (4.7-12.5); PLATELET COUNT 69 K/uL (163-369)
[2024-10-30 08:24] LABS: CALCIUM 7.1 mg/dL (8.5-10.1); CREATININE SERUM 0.56 mg/dL (0.55-1.02); GFR 101.93; MAGNESIUM 1.9 mg/dL (1.8-2.4); POTASSIUM 3.34 mEq/L (3.5-5.1)
[2024-10-30 08:52] LABS: PHOSPHOROUS 0.8 mg/dL (2.5-4.9)
[2024-10-30] MEDS ORDERED: LISINOPRIL 10 MG TABLET PO SCH (09:00)
[2024-10-30] MEDS ORDERED: DEXTROSE 5%-LACTATED RINGERS 1,000 ML IV SCH (11:45)
[2024-10-30] MEDS ORDERED: POTASSIUM PHOS,M-BASIC-D-BASIC 15 MM in 0.9 % SODIUM CHLORIDE 250 ML IV NR (12:15)
[2024-10-30] MEDS ORDERED: POTASSIUM CHLORIDE 20MEQ/100ML H2O PB IV NR ×2 (12:15→17:00)
[2024-10-30] MEDS ORDERED: CEFTRIAXONE SODIUM 1,000 MG VIAL IV SCH (13:37)
[2024-10-30] MEDS ORDERED: AMLODIPINE BESYLATE 5 MG TABLET PO SCH (19:33)
[2024-10-31] VITALS (7 sets, daily range): BP systolic 124–144; BP diastolic 67–69; O2SAT 95–98
[2024-10-31 06:32] LABS: BASO % 0.7 % (0.1-1.2); EOS # 0.03 (0.04-0.54); EOS % 0.5 % (0.7-7.0); HEMATOCRIT 43.5 % (34.1-44.9); HEMOGLOBIN 13.9 g/dL (11.2-15.7); LYMPH # 1.21 (1.18-3.74); LYMPH % 21.7 % (19.3-53.1); MEAN CORPUSCULAR HEMOGLOBIN 27.5 pg (25.6-32.2); MONO # 1.65 (0.24-0.82); NEUT % 46.8 % (34.0-71.1); RED BLOOD COUNT 5.05 M/uL (3.93-5.22); RED CELL DISTRIBUTION WIDTH 15.6 % (11.6-14.4)
[2024-10-31 07:23] LABS: MONO % 29.6 % (4.7-12.5)
[2024-10-31 07:25] LABS: PLATELET COUNT 61 K/uL (163-369)
[2024-10-31 07:37] LABS: CALCIUM 7.4 mg/dL (8.5-10.1); CREATININE SERUM 0.49 mg/dL (0.55-1.02); GFR 118.91; MAGNESIUM 1.9 mg/dL (1.8-2.4); POTASSIUM 3.86 mEq/L (3.5-5.1)
[2024-10-31 07:43] LABS: PHOSPHOROUS 1.7 mg/dL (2.5-4.9)
[2024-10-31] MEDS ORDERED: POTASSIUM PHOS,M-BASIC-D-BASIC 15 MM in 0.9 % SODIUM CHLORIDE 250 ML IV NR (11:00)
[2024-10-31] MEDS ORDERED: APIXABAN 2.5 MG TABLET PO SCH (17:00)
[2024-10-31] MEDS ORDERED: BUDESONIDE 0.5 MG/2 ML AMPUL.NEB IH SCH (21:00)
[2024-11-01] VITALS (10 sets, daily range): BP systolic 114–152; BP diastolic 66–80; O2SAT 89–99
[2024-11-01 06:44] LABS: BASO % 0.6 % (0.1-1.2); EOS # 0.04 (0.04-0.54); EOS % 0.6 % (0.7-7.0); HEMATOCRIT 44.9 % (34.1-44.9); HEMOGLOBIN 14.3 g/dL (11.2-15.7); LYMPH # 1.11 (1.18-3.74); LYMPH % 16.6 % (19.3-53.1); MEAN CORPUSCULAR HEMOGLOBIN 27.9 pg (25.6-32.2); MONO # 1.79 (0.24-0.82); NEUT # 3.66 (1.56-6.13); NEUT % 54.7 % (34.0-71.1); RED BLOOD COUNT 5.13 M/uL (3.93-5.22); RED CELL DISTRIBUTION WIDTH 15.8 % (11.6-14.4)
[2024-11-01 07:12] LABS: ALBUMIN 2.5 gm/dL (3.4-5.0); BILIRUBIN TOTAL 0.7 mg/dL (0.3-1.2); CALCIUM 7.8 mg/dL (8.5-10.1); CREATININE SERUM 0.48 mg/dL (0.55-1.02); GFR 121.77; GLOBULINA 3.4 G/DL (2.4-3.5); MAGNESIUM 1.9 mg/dL (1.8-2.4); PHOSPHOROUS 2.2 mg/dL (2.5-4.9); POTASSIUM 3.76 mEq/L (3.5-5.1); TOTAL PROTEIN 5.9 gm/dL (6.4-8.2)
[2024-11-01 08:13] LABS: PLATELET COUNT 62 K/uL (163-369)
[2024-11-01 08:14] LABS: MONO % 26.8 % (4.7-12.5)
[2024-11-02] VITALS (11 sets, daily range): BP systolic 126–168; BP diastolic 62–85; O2SAT 90–99
[2024-11-02] MEDS ORDERED: BUDESONIDE 0.5 MG/2 ML AMPUL.NEB IH SCH (01:00)
[2024-11-02 06:47] LABS: CALCIUM 8.4 mg/dL (8.5-10.1); CREATININE SERUM 0.49 mg/dL (0.55-1.02); GFR 118.91; POTASSIUM 4.27 mEq/L (3.5-5.1)
[2024-11-02 06:57] LABS: EOS # 0.06 (0.04-0.54); EOS % 0.8 % (0.7-7.0); HEMATOCRIT 45.4 % (34.1-44.9); HEMOGLOBIN 14.2 g/dL (11.2-15.7); LYMPH % 17.9 % (19.3-53.1); MEAN CORPUSCULAR HEMOGLOBIN 27.8 pg (25.6-32.2); MONO # 1.69 (0.24-0.82); NEUT # 4.09 (1.56-6.13); NEUT % 56.4 % (34.0-71.1); RED BLOOD COUNT 5.11 M/uL (3.93-5.22); RED CELL DISTRIBUTION WIDTH 15.6 % (11.6-14.4)
[2024-11-02 08:29] LABS: MONO % 23.3 % (4.7-12.5)
[2024-11-02 08:30] LABS: PLATELET COUNT 60 K/uL (163-369)
[2024-11-02] MEDS ORDERED: CEFTRIAXONE SODIUM 2,000 MG VIAL IV SCH (09:00)
[2024-11-02] MEDS ORDERED: LEVALBUTEROL HCL 1.25 MG/3 ML SOLUTION IH SCH (09:00)
[2024-11-02 13:50] LABS: ABG PH 7.338 (7.35-7.45); ABG PO2 75.8 mmHg (80-100); ABG pCO2 52.3 mmHg (35-45); BASE EXCESS 0.7 mmol/l; BICARBONATE 27.5 mmol/l (23-25); Tco2 29.1 mmol/l
[2024-11-02 13:57] LABS: allen test SATISFACTORY; mode NASAL CANNULA; o2 32 %; puncture site RADIAL RIGHT
[2024-11-02] MEDS ORDERED: LACTULOSE 20 G/30 ML BLIST.PACK PO SCH (17:00)
[2024-11-02] MEDS ORDERED: CLOTRIMAZOLE 10 MG TROCHE MM SCH (17:00)
[2024-11-02] MEDS ORDERED: DOCUSATE SODIUM 100MG CAP PO SCH (17:00)
[2024-11-02 21:25] LABS: URINE APPEARANCE Clear; URINE BILIRRUBIN Negative (NEGATIVE); URINE BLOOD Small; URINE COLOR Yellow; URINE GLUCOSE Negative (NEGATIVE); URINE KETONE Negative (NEGATIVE); URINE LEUKOCYTE Negative; URINE NITRATE Negative; URINE PROTEIN >=1000 (NEGATIVE); URINE UROBILINOGEN 0.2 E.U./dl
[2024-11-02 21:29] LABS: URINE BACTERIA 79.5 uL (0.0-1933); URINE EPITHELIAL CELLS 65.5 uL (0.0-38.8); URINE RBC 28.7 uL (0.0-20.8); URINE WBC 7.5 uL (0.0-23.2)
[2024-11-02 21:39] LABS: URINE CAST 1.32 uL (0.0-1.40)
[2024-11-03] VITALS (9 sets, daily range): BP systolic 118–176; BP diastolic 60–81; O2SAT 89–99
[2024-11-03 05:46] LABS: HEMATOCRIT 41.8 % (34.1-44.9); HEMOGLOBIN 13.4 g/dL (11.2-15.7); MEAN CORPUSCULAR HEMOGLOBIN 27.9 pg (25.6-32.2); PLATELET COUNT 59 K/uL (163-369); RED BLOOD COUNT 4.81 M/uL (3.93-5.22); RED CELL DISTRIBUTION WIDTH 15.5 % (11.6-14.4)
[2024-11-03 05:48] LABS: BASO % 0.9 % (0.1-1.2); EOS # 0.02 (0.04-0.54); EOS % 0.3 % (0.7-7.0); LYMPH # 1.09 (1.18-3.74); LYMPH % 15.9 % (19.3-53.1); MONO # 1.38 (0.24-0.82); MONO % 20.1 % (4.7-12.5); NEUT % 62.5 % (34.0-71.1)
[2024-11-03 06:50] LABS: ALBUMIN 2.2 gm/dL (3.4-5.0); BILIRUBIN TOTAL 0.45 mg/dL (0.3-1.2); CALCIUM 8.4 mg/dL (8.5-10.1); CREATININE SERUM 0.52 mg/dL (0.55-1.02); GFR 111.03; GLOBULINA 3.1 G/DL (2.4-3.5); MAGNESIUM 1.9 mg/dL (1.8-2.4); PHOSPHOROUS 2.9 mg/dL (2.5-4.9); POTASSIUM 4.7 mEq/L (3.5-5.1); TOTAL PROTEIN 5.3 gm/dL (6.4-8.2)
[2024-11-03 10:15] LABS: INR 1.09; PARTIAL THROMBOPLASTIN TIME 30.5 SECONDS (22.0-34.0); PROTHROMBIN TIME 11.8 SECONDS (9.0-11.5)
[2024-11-03] MEDS ORDERED: VITAMIN B COMPLEX/LYSINE 15 ML BLIST.PACK PO SCH (16:30)
[2024-11-03] MEDS ORDERED: LACTOBACILLUS ACIDOPHILUS 1 CAP CAP PO SCH (17:00)
[2024-11-03] MEDS ORDERED: FUROsemide 20 MG/2 ML VIAL IV SCH (22:16)
[2024-11-03] MEDS ORDERED: METOPROLOL TARTRATE 25 MG TABLET PO SCH (22:17)
[2024-11-03 22:32] LABS: MONONUCLEAR 89.9 %; PLEURAL FLUID WBC 0.4 10E3/uL; POLYMORPHONUCLEAR 10.1 %
[2024-11-03 22:33] LABS: PLEURAL FLUID APPEARANCE HAZY; PLEURAL FLUID COLOR YELLOW
[2024-11-03 22:44] LABS: TP PLEURAL FLUID 1.8 g/dl
[2024-11-04] VITALS (9 sets, daily range): BP systolic 129–132; BP diastolic 50–77; O2SAT 89–100
[2024-11-05] VITALS (7 sets, daily range): BP systolic 110–119; BP diastolic 55–57; O2SAT 92–99
[2024-11-05 14:13] LABS: ABG PH 7.483 (7.35-7.45); ABG PO2 68.7 mmHg (80-100); ABG pCO2 43.6 mmHg (35-45); BASE EXCESS 7.6 mmol/l; SaO2 95.2 %; Tco2 33.3 mmol/l
[2024-11-05 14:57] LABS: allen test SATISFACTORY; mode ROOM AIR; o2 21 %; puncture site RADIAL RIGHT
[2024-11-06] VITALS (7 sets, daily range): BP systolic 107–156; BP diastolic 62–79; O2SAT 95–100
[2024-11-06] MEDS ORDERED: SODIUM CHLORIDE FOR INHALATION 1 VIAL.NEB IH NR (13:00)
[2024-11-06] MEDS ORDERED: SODIUM CHLORIDE FOR INHALATION 1 VIAL.NEB IH SCH (17:00)
[2024-11-07 01:14] VITALS: BP 120/60; O2SAT 97
[2024-11-07 01:36] VITALS: O2SAT 98
[2024-11-07 04:11] VITALS: O2SAT 96
[2024-11-07 06:29] LABS: BASO % 0.6 % (0.1-1.2); EOS # 0.02 (0.04-0.54); EOS % 0.3 % (0.7-7.0); HEMATOCRIT 40.4 % (34.1-44.9); HEMOGLOBIN 12.8 g/dL (11.2-15.7); LYMPH # 1.35 (1.18-3.74); LYMPH % 20.5 % (19.3-53.1); MEAN CORPUSCULAR HEMOGLOBIN 27.2 pg (25.6-32.2); NEUT # 3.52 (1.56-6.13); NEUT % 53.6 % (34.0-71.1); RED BLOOD COUNT 4.71 M/uL (3.93-5.22); RED CELL DISTRIBUTION WIDTH 15.7 % (11.6-14.4)
[2024-11-07 07:00] VITALS: BP 143/61; O2SAT 97
[2024-11-07 07:50] LABS: MONO % 24.4 % (4.7-12.5)
[2024-11-07 07:51] LABS: PLATELET COUNT 64 K/uL (163-369)
[2024-11-07] MEDS ORDERED: METOPROLOL TARTRATE 50 MG TABLET PO SCH (09:00)
[2024-11-07] MEDS ORDERED: GUAIFENESIN 600 MG TABLET.SA PO SCH (09:00)
[2024-11-07 09:44] VITALS: O2SAT 90
[2024-11-07] MEDS ORDERED: ELIQUIS2.5 MG PO (12:11)
[2024-11-07] MEDS ORDERED: ARICEPT10 MG PO (12:11)
[2024-11-07] MEDS ORDERED: INTEGRA PLUS C1 EACH PO (12:11)
[2024-11-07] MEDS ORDERED: LISINOPRIL10 MG PO (12:12)
[2024-11-07] MEDS ORDERED: AMLODIPINE BESYL5 MG PO (12:12)
[2024-11-07] MEDS ORDERED: METOPROLOL TART50 MG PO (12:12)
[2024-11-07] MEDS ORDERED: SIMVASTATIN40 MG PO (12:13)
[2024-11-07] MEDS ORDERED: NeuRONTin 400MG CAPS PO (12:14)
[2024-11-07] MEDS ORDERED: MEMANTINE HCL10 MG PO (12:15)
[2024-11-07] MEDS ORDERED: NEURONTIN800 MG PO (12:16)
[2024-11-07] MEDS ORDERED: PANTOPRAZOLE SO40 MG PO (12:20)
[2024-11-07] MEDS ORDERED: CLOTRIMAZOLE10 MG MM (12:22)
[2024-11-07] MEDS ORDERED: INTESTINEX680 M1 PO (12:22)
[2024-11-07] MEDS ORDERED: LACTULOSE10 GM/152 PO (12:23)
[2024-11-07] MEDS ORDERED: COLACE100 MG PO (12:23)
[2024-11-07] MEDS ORDERED: LEVALBUTEROL HCL 1.25 MG/3 ML SOLUTION IH SCH (13:00)
== END 2024-11-07 14:05 | disposition home or self-care (01) | DRG 811 ==
LOC: ER 15:30 → ICU-2 20:34 → MEDI 20:34 → ICU-2 23:45 → MEDI 10-26 08:23
PROVIDERS: Emergency Medicine; General Practice; Internal Medicine; Internal Medicine Geriatric Medicine; Internal Medicine Hematology & Oncology; Radiology Vascular & Interventional Radiology; ADMIT Internal Medicine; ATTEND Internal Medicine
PROC: BW21YZZ Computerized Tomography (CT Scan) of Abdomen and Pelvis using Other Contrast (ICD-10-PCS; 2024-10-24)
PROC: 30243N1 Transfusion of Nonautologous Red Blood Cells into Central Vein, Percutaneous Approach (ICD-10-PCS; 2024-10-24)
PROC: 4A12X4Z Monitoring of Cardiac Electrical Activity, External Approach (ICD-10-PCS; 2024-10-26)
PROC: 0DJ08ZZ Inspection of Upper Intestinal Tract, Via Natural or Artificial Opening Endoscopic (ICD-10-PCS; 2024-10-27)
PROC: 02HV33Z Insertion of Infusion Device into Superior Vena Cava, Percutaneous Approach (ICD-10-PCS; 2024-10-30)
PROC: B54MZZZ Ultrasonography of Right Upper Extremity Veins (ICD-10-PCS; 2024-10-31)
PROC: B24BYZZ Ultrasonography of Heart with Aorta using Other Contrast (ICD-10-PCS; 2024-10-31)
PROC: BW24ZZZ Computerized Tomography (CT Scan) of Chest and Abdomen (ICD-10-PCS; 2024-11-01)
PROC: 0W9B3ZZ Drainage of Left Pleural Cavity, Percutaneous Approach (ICD-10-PCS; principal; 2024-11-03)
PROC: BH4BZZZ Ultrasonography of Chest Wall (ICD-10-PCS; 2024-11-03)
DX: D64.9 Anemia, unspecified (principal); J18.9 Pneumonia, unspecified organism; N39.0 Urinary tract infection, site not specified; D62 Acute posthemorrhagic anemia; D69.6 Thrombocytopenia, unspecified; F03.90 Unspecified dementia, unspecified severity, without behavioral disturbance, psychotic disturbance, mood disturbance, and anxiety; E11.9 Type 2 diabetes mellitus without complications; Z79.4 Long term (current) use of insulin; I50.9 Heart failure, unspecified; R09.02 Hypoxemia; R60.9 Edema, unspecified; I11.0 Hypertensive heart disease with heart failure

== ENCOUNTER 2024-12-04 12:47 | Inpatient (IN) | payer OTHER ==
[~2024-12-04] VITALS: Ht 147.3 cm; Wt 49.9 kg
[~2024-12-04 12:47] MED LIST changes: +AMLODIPINE BESYL5 MG PO; +CLOTRIMAZOLE10 MG MM; +COLACE100 MG PO; +ELIQUIS2.5 MG PO; +INTEGRA PLUS C1 EACH PO; +INTESTINEX680 M1 PO; +LACTULOSE10 GM/152 PO; +LISINOPRIL10 MG PO; +MEMANTINE HCL10 MG PO; +METOPROLOL TART50 MG PO; +NEURONTIN800 MG PO; +NeuRONTin 400MG CAPS PO; +PANTOPRAZOLE SO40 MG PO; +SIMVASTATIN40 MG PO
--- NOTE | 2024-12-04 13:36 | NUR ---
FAMILIAR REFIERER DEBILIDAD GENERALIZADA Y HGB 8.6 ULTIMO CBC EL 2024.
[2024-12-04] MEDS ORDERED: 0.9 % SODIUM CHLORIDE 1,000 ML IV SCH (13:45)
--- NOTE | 2024-12-04 16:21 | NUR ---
SE EDUCA A PACIENTE SOBRE TRATAMIENTO MEDICO EL CUAL REFIERE ENTENDER, SE REALIZA COLECCION DE MUESTRAS BAJO MEDIDAS ASEPTICAS Y SE ADMINISTRA MEDICAMENTOS ALFA ORDEN MEDICA.
[2024-12-04 16:30] LABS: BASO % 0.4 % (0.1-1.2); EOS # 0.11 (0.04-0.54); EOS % 1.9 % (0.7-7.0); LYMPH # 1.13 (1.18-3.74); LYMPH % 19.9 % (19.3-53.1); MONO # 0.94 (0.24-0.82); NEUT # 3.45 (1.56-6.13); NEUT % 60.6 % (34.0-71.1); RED CELL DISTRIBUTION WIDTH 18.5 % (11.6-14.4)
[2024-12-04 16:45] LABS: MONO % 16.5 % (4.7-12.5)
[2024-12-04 16:47] LABS: INR 1.05
[2024-12-04 16:53] LABS: ALT/SGPT 15.0 U/L (12-78); AST/SGOT 13.0 U/L (15-37); BILIRUBIN TOTAL 0.41 mg/dL (0.3-1.2); BUN CREA RATIO 41.0 (7.0-25.0); CREATININE SERUM 0.76 mg/dL (0.55-1.02); GFR 71.66; GLOBULINA 3.6 G/DL (2.4-3.5); GLUCOSE FASTING 173.0 mg/dL (65-100); OSMOLALITY SERUM 299.0 MOSM/KG (275-295)
[2024-12-04] MEDS ORDERED: PANTOPRAZOLE SODIUM 40 MG/VIAL VIAL IV SCH (18:50)
[2024-12-04 22:13] VITALS: BP 110/52
[2024-12-05 06:26] LABS: BASO % 0.6 % (0.1-1.2); EOS # 0.01 (0.04-0.54); EOS % 0.2 % (0.7-7.0); LYMPH # 1.49 (1.18-3.74); LYMPH % 31.7 % (19.3-53.1); MONO # 0.90 (0.24-0.82); NEUT # 2.25 (1.56-6.13); NEUT % 48.0 % (34.0-71.1); RED CELL DISTRIBUTION WIDTH 18.6 % (11.6-14.4)
[2024-12-05 06:43] LABS: MONO % 19.1 % (4.7-12.5)
[2024-12-05 08:49] LABS: URINE APPEARANCE Clear; URINE BILIRRUBIN Negative (NEGATIVE); URINE BLOOD Negative; URINE COLOR Yellow; URINE GLUCOSE Negative (NEGATIVE); URINE KETONE Negative (NEGATIVE); URINE LEUKOCYTE Negative; URINE NITRATE Negative; URINE UROBILINOGEN 0.2 E.U./dl
[2024-12-05 08:50] LABS: URINE BACTERIA 11.9 uL (0.0-1933); URINE EPITHELIAL CELLS 2.7 uL (0.0-38.8); URINE WBC 1.9 uL (0.0-23.2)
[2024-12-05 08:51] VITALS: BP 100/65; O2SAT 100
[2024-12-05] MEDS ORDERED: IRON FUM,PS/FOLIC/BCOMP,C NO.9 1 CAP CAPSULE PO SCH (09:00)
[2024-12-05 09:20] LABS: URINE CAST 0.73 uL (0.0-1.40); URINE MUCUS SCANT; URINE PROTEIN 100 (NEGATIVE); URINE RBC 1.7 uL (0.0-20.8)
[2024-12-05 09:37] VITALS: BP 123/68; O2SAT 100
[2024-12-05 10:28] LABS: FOLIC ACID > 20.00 ng/ml (4.78-20)
[2024-12-05] MEDS ORDERED: DONEPEZIL HCL 10 MG TABLET PO SCH (17:00)
[2024-12-05] MEDS ORDERED: MEMANTINE HCL 10 MG TABLET PO SCH (17:00)
[2024-12-05] MEDS ORDERED: VITAMIN B COMPLEX/LYSINE 15 ML BLIST.PACK PO SCH (17:00)
[2024-12-05] MEDS ORDERED: POLYETHYLENE GLYCOL 3350 17 GM BLIST.PACK PO SCH (17:35)
[2024-12-05] MEDS ORDERED: ACETAMINOPHEN 500 MG GEL..CAP PO PRN (17:45)
[2024-12-05 18:41] VITALS: BP 118/87
[2024-12-05] MEDS ORDERED: DOCUSATE SODIUM 100MG CAP PO SCH (21:00)
[2024-12-05] MEDS ORDERED: GABAPENTIN 400 MG CAPSULE PO SCH (21:00)
[2024-12-06 01:25] VITALS: BP 105/64; O2SAT 98
[2024-12-06 09:06] VITALS: BP 109/61; O2SAT 94
[2024-12-06 18:32] LABS: BASO % 0.6 % (0.1-1.2); EOS # 0.04 (0.04-0.54); EOS % 0.6 % (0.7-7.0); LYMPH # 1.32 (1.18-3.74); LYMPH % 21.1 % (19.3-53.1); MEAN PLATELET VOLUME 14.20 fl (9.4-12.4); MONO # 1.57 (0.24-0.82); NEUT # 3.26 (1.56-6.13); NEUT % 52.1 % (34.0-71.1); RED CELL DISTRIBUTION WIDTH 19.0 % (11.6-14.4)
[2024-12-06 19:03] LABS: FE 157.0 ug/dl (50-170); MONO % 25.1 % (4.7-12.5)
[2024-12-06 19:04] LABS: BASOPHIL MAN 2.0 %; EOSINOPHIL MAN 1.0 %; LYMPHOCYTE MAN 18.0 %; MONOCYTE MAN 24.0 %; NEUTROPHILS MAN 50.0 %
[2024-12-06 21:16] VITALS: BP 122/51
[2024-12-07 02:41] VITALS: BP 129/56; O2SAT 97
[2024-12-07 06:22] LABS: BASO % 0.7 % (0.1-1.2); EOS # 0.02 (0.04-0.54); EOS % 0.4 % (0.7-7.0); LYMPH # 1.42 (1.18-3.74); LYMPH % 25.9 % (19.3-53.1); MEAN PLATELET VOLUME 13.40 fl (9.4-12.4); MONO # 1.15 (0.24-0.82); NEUT # 2.82 (1.56-6.13); NEUT % 51.4 % (34.0-71.1); RED CELL DISTRIBUTION WIDTH 18.6 % (11.6-14.4)
[2024-12-07 06:35] LABS: MONO % 20.9 % (4.7-12.5)
[2024-12-07] MEDS ORDERED: PANTOPRAZOLE SODIUM 40 MG TABLET.DR PO SCH (07:45)
[2024-12-07 09:10] VITALS: BP 140/57; O2SAT 97
[2024-12-07 12:23] LABS: ob NEGATIVE (NEGATIVE)
[2024-12-07 18:00] VITALS: BP 128/45
[2024-12-07 20:09] VITALS: BP 127/57; O2SAT 100
[2024-12-08 01:30] VITALS: BP 90/53; O2SAT 96
[2024-12-08 09:13] VITALS: BP 107/50; O2SAT 98
[2024-12-08 16:50] LABS: BASO % 0.8 % (0.1-1.2); EOS # 0.02 (0.04-0.54); EOS % 0.4 % (0.7-7.0); LYMPH # 1.28 (1.18-3.74); LYMPH % 24.8 % (19.3-53.1); MEAN PLATELET VOLUME 13.60 fl (9.4-12.4); MONO # 1.20 (0.24-0.82); NEUT # 2.60 (1.56-6.13); NEUT % 50.3 % (34.0-71.1); RED CELL DISTRIBUTION WIDTH 18.3 % (11.6-14.4)
[2024-12-08 16:51] LABS: MONO % 23.3 % (4.7-12.5)
[2024-12-08 17:11] LABS: LYMPHOCYTE MAN 34.0 %; MONOCYTE MAN 20.0 %; NEUTROPHILS MAN 46.0 %
[2024-12-08 18:59] VITALS: BP 105/41; O2SAT 100
[2024-12-09 03:23] VITALS: BP 127/68; O2SAT 97
[2024-12-09 08:08] LABS: BASO % 0.8 % (0.1-1.2); EOS # 0.02 (0.04-0.54); EOS % 0.4 % (0.7-7.0); LYMPH # 1.25 (1.18-3.74); LYMPH % 23.8 % (19.3-53.1); MEAN PLATELET VOLUME 14.50 fl (9.4-12.4); MONO # 1.32 (0.24-0.82); NEUT # 2.60 (1.56-6.13); NEUT % 49.3 % (34.0-71.1); RED CELL DISTRIBUTION WIDTH 18.5 % (11.6-14.4)
[2024-12-09 09:06] LABS: BAND MAN 2.0 %; LYMPHOCYTE MAN 18.0 %; MONO % 25.1 % (4.7-12.5); MONOCYTE MAN 30.0 %; NEUTROPHILS MAN 50.0 %
[2024-12-09 11:22] VITALS: BP 113/43
[2024-12-09 16:45] VITALS: BP 121/54; O2SAT 99
[2024-12-10 03:16] VITALS: BP 112/50; O2SAT 97
[2024-12-10 09:04] VITALS: BP 135/53; O2SAT 99
[2024-12-10] MEDS ORDERED: NeuRONTin 400MG CAPS PO (15:15)
[2024-12-10] MEDS ORDERED: MEMANTINE HCL10 MG PO (15:15)
[2024-12-10] MEDS ORDERED: APETIGEN P12.5 MG/15 PO (15:15)
[2024-12-10] MEDS ORDERED: INTEGRA PLUS C1 EACH PO (15:15)
[2024-12-10] MEDS ORDERED: PANTOPRAZOLE SO40 MG PO (15:15)
[2024-12-10] MEDS ORDERED: ARICEPT10 MG PO (15:15)
[2024-12-10 23:09] LABS: g6pd quant 294 (127-427)
== END 2024-12-10 16:42 | disposition home or self-care (01) | DRG 812 ==
LOC: ER → SEC-K 19:46 → MEDI 19:46 → EDBD 19:46 → MEDI 20:59
PROVIDERS: Emergency Medicine; General Practice; Internal Medicine Hematology & Oncology; ADMIT Internal Medicine; ATTEND Internal Medicine
PROC: 30233N1 Transfusion of Nonautologous Red Blood Cells into Peripheral Vein, Percutaneous Approach (ICD-10-PCS; principal; 2024-12-05)
PROC: B54MZZZ Ultrasonography of Right Upper Extremity Veins (ICD-10-PCS; 2024-12-05)
DX: D64.9 Anemia, unspecified (principal); C91.11 Chronic lymphocytic leukemia of B-cell type in remission; G30.9 Alzheimer's disease, unspecified; F02.80 Dementia in other diseases classified elsewhere, unspecified severity, without behavioral disturbance, psychotic disturbance, mood disturbance, and anxiety; E78.5 Hyperlipidemia, unspecified; K55.20 Angiodysplasia of colon without hemorrhage; N18.9 Chronic kidney disease, unspecified; D53.0 Protein deficiency anemia; D63.1 Anemia in chronic kidney disease; I25.10 Atherosclerotic heart disease of native coronary artery without angina pectoris; I13.10 Hypertensive heart and chronic kidney disease without heart failure, with stage 1 through stage 4 chronic kidney disease, or unspecified chronic kidney disease